=== PATIENT | male | born 1990 | race Caucasian/White ===

== ENCOUNTER 2017-01-08 20:14 | Emergency (ER) | payer SELFPAY ==
[~2017-01-08] VITALS: Ht 182.9 cm; Wt 95.4 kg
[2017-01-08 20:56] LABS: BASOPHIL COUNT 0.1 K/uL (0-0.1); EOSINOPHIL (%) 4.6 % (0-5); EOSINOPHIL COUNT 0.4 K/uL (0-0.3); HEMATOCRIT 46.8 % (38.0-50.0); IMMATURE GRANULOCYTE (%) 0.3 % (0.0-0.7); INSTRUMENT ABS NEUTROPHIL CT 5.4 K/uL; LYMPHOCYTE COUNT 2.1 K/uL (1.0-2.8); MCH 31.6 PG (29.0-34.0); MCHC 35.5 G/DL (30.0-36.0); MCV 89.1 FL (86-99); MEAN PLAT.VOLUME 10.2 uM^3 (9.0-12.4); MONOCYTE (%) 9.4 % (3-12); MONOCYTE COUNT 0.8 K/uL (0-0.8); NEUTROPHIL (%) 61.2 % (45-76); NEUTROPHIL COUNT 5.4 K/uL (1.8-6.4); PLATELET COUNT 221 K/uL (156-360); RBC DIS.WIDTH-CV 11.9 % (11.8-14.6); RBC DIS.WIDTH-SD 38.5 % (39-53); RED BLOOD COUNT 5.25 M/uL (4.00-5.50); WHITE BLOOD COUNT 8.9 K/uL (4.1-10.2)
[2017-01-08 21:04] LABS: CHLORIDE 106 mEq/L (99-109); POTASSIUM 4.2 mEq/L (3.7-5.4); SODIUM 142 mEq/L (136-147)
[2017-01-08 21:05] LABS: GLUCOSE 86 mg/dL (70-99)
[2017-01-08 21:07] LABS: ANION GAP 11 MEQ/L (2-14)
[2017-01-08 21:09] LABS: GFR ESTIMATE (CALCULATED) > 59 mL/min/
[2017-01-08 21:10] LABS: UREA NITROGEN (BUN) 18 mg/dL (9-23)
[2017-01-08] MEDS ORDERED: CIPRO500 MG PO (21:24)
[2017-01-08] MEDS ORDERED: KEFLEX500 MG PO (21:24)
[2017-01-08 21:56] VITALS: BP 137/83
== END 2017-01-08 22:00 | disposition home or self-care (01) ==
LOC: EME 20:14
PROVIDERS: Emergency Medicine
DX: L03.116 Cellulitis of left lower limb (principal); B35.3 Tinea pedis; F17.200 Nicotine dependence, unspecified, uncomplicated
CPT/HCPCS: 80048; 83605; 85025; 99281; 99284